=== PATIENT | male | born 1970 | race Caucasian/White ===

== ENCOUNTER → 2020-04-17 | Outpatient (CLI) | payer OTHER ==
[2020-04-18 02:12] LABS: Hepatitis A Antibody IgM Non-Reactive (Non-Reactive); Hepatitis B Core IgM Non-Reactive (Non-Reactive); Hepatitis B Surface Antigen Non-Reactive (Non-Reactive); Hepatitis C IgG Antibody Non-Reactive (Non-Reactive)
[2020-04-18 09:17] LABS: HIV 2 AB Non-Reactive (Non-Reactive); HIV AB P24 Non-Reactive (Non-Reactive); HIV P24 AG Non-Reactive (Non-Reactive)
[2020-04-19 07:41] LABS: C. trachomatis,PCR Negative (Neg,Equiv); Chlamydia trachomatis Source Urine; N. gonorrhoeae,PCR Negative (Neg,Equiv); Neisseria Source Urine
== END | disposition home or self-care (01) ==
LOC: LABWHC1 16:32
PROVIDERS: ATTEND Physician Assistant
DX: Z11.3 Encounter for screening for infections with a predominantly sexual mode of transmission (principal)
CPT/HCPCS: 36415; 80074; 86780; 87390; 87491; 87591

== ENCOUNTER → 2020-09-18 | Outpatient (CLI) | payer BC, OTHER ==
--- NOTE | 2020-09-18 12:56 | XR ---
EXAMINATION TYPE: XR lumbosacral spine min 4V DATE OF EXAM: 09/18/2020 CLINICAL HISTORY: Chest pain, fall, lower back pain TECHNIQUE: Frontal, lateral, and oblique images of the lumbar spine are obtained. COMPARISON: None FINDINGS: There are 5 lumbar-type vertebral bodies. Vertebral body height is maintained. Sacroiliac j oints are intact. The facets are in alignment and oblique views. There is maintenance of the normal l umbar lordosis. There is mild retrolisthesis of L4 and L5. Intervertebral disc space narrowing and va cuum disc phenomenon at L5-S1. Anterior osteophytes are seen at L5-S1. There is a nonspecific sclerot ic lesion within the left iliac measuring 1.2 cm. A bone scan or comparison to prior studies includin g the pelvis could be obtained. No prior studies are available. IMPRESSION: 1. No acute compression fracture of the lumbar spine. 2. Degenerative changes of the lower lumbar spine including mild retrolisthesis of L4 on L5 and inter vertebral disc space narrowing and vacuum disc phenomenon at L5-S1. Anterior osteophytes are seen at L5-S1. 3. Nonspecific sclerotic lesion within the left iliac bone measuring 1.2 cm. A comparison to prior st udies would BE helpful. If not available, bone scan could be obtained.
--- NOTE | 2020-09-18 13:37 | XR ---
EXAMINATION TYPE: XR ribs LT w pa chest x-ray DATE OF EXAM: 09/18/2020 COMPARISON: NONE HISTORY: 50-year-old with pain in the left ribs after fall FINDINGS: Heart size is within normal limits. No focal consolidation, pneumothorax or pleural effusio n. No definite evidence of left rib fracture. IMPRESSION: 1. No pneumothorax. No definite evidence of left rib fracture. No acute pulmonary disease.
== END | disposition home or self-care (01) ==
LOC: RADXRYALE 11:45
PROVIDERS: ATTEND Physician Assistant
DX: M99.73 Connective tissue and disc stenosis of intervertebral foramina of lumbar region (principal); M43.16 Spondylolisthesis, lumbar region; M47.816 Spondylosis without myelopathy or radiculopathy, lumbar region; M25.78 Osteophyte, vertebrae; M89.9 Disorder of bone, unspecified; R07.9 Chest pain, unspecified; W10.8XXA Fall (on) (from) other stairs and steps, initial encounter
CPT/HCPCS: 72110

== ENCOUNTER → 2021-03-24 | Outpatient (CLI) | payer OTHER ==
--- NOTE | 2021-03-24 12:30 | MR ---
EXAMINATION TYPE: MR brain wo/w con DATE OF EXAM: 03/24/2021 COMPARISON: None HISTORY: Migraine, visual and auditory hallucinations TECHNIQUE: Multiplanar, multisequence images of the brain and brainstem is performed without and with IV contras t, utilizing 10 mL intravenous Gadavist . FINDINGS: Diffusion weighted images demonstrate no evidence of a recent infarct or other diffusion ab normality. There is no extra-axial fluid collection. Nonspecific hyperintensity and inversion recove ry and T2-weighted sequences noted in the subcortical white matter of the anterior left temporal lobe measures approximately 15 mm in anterior to posterior dimension by 6 mm in transverse dimension The ventricular system and cisternal spaces are normal in size and appearance. The brain volume is age a ppropriate. Midline structures demonstrate normal morphology. The craniocervical junction appears within normal limits. Post contrast images demonstrate no abnormal enhancement. The dural venous sinuses appear pa tent. The visualized sinuses are clear and the globes are intact. IMPRESSION: Nonspecific focus of white matter demyelination anterior temporal lobe on the left
== END | disposition home or self-care (01) ==
LOC: RADMRIMAIN 09:31
PROVIDERS: ATTEND Family Medicine
DX: G43.009 Migraine without aura, not intractable, without status migrainosus (principal); R44.1 Visual hallucinations; R44.0 Auditory hallucinations; F39 Unspecified mood [affective] disorder
CPT/HCPCS: 70553; A9585

== ENCOUNTER 2021-05-13 10:01 | Day surgery (SDC) | payer OTHER ==
[2021-05-11 11:55] VITALS: BMI 31.5
[~2021-05-13 10:01] MED LIST: LACTATED RINGERS 1,000 ML IV SCH
[2021-05-13 10:32] VITALS: RESP 16; TEMP 98.8
[2021-05-13] MEDS ORDERED: fentaNYL (PF) 50 MCG/ML 2 ML AMP ONE (10:46)
[2021-05-13] MEDS ORDERED: PROPOFOL 10 MG/ML 20 ML VIAL IV ONE (10:46)
[2021-05-13] MEDS ORDERED: MIDAZOLAM 2 MG/2 ML VIAL ONE (10:46)
--- NOTE | 2021-05-13 11:01 | P.PCN ---
Date of Procedure: 05/13/21 Implants: BRIEF HISTORY: Patient is a 50-year-old pleasant white male scheduled for an elective colonoscopy as a part of screening for colorectal neoplasia. He also has family history of colon cancer in his mother at age 60 and his maternal aunt at age 65. PROCEDURE PERFORMED: Colonoscopy. PREOPERATIVE DIAGNOSIS: Screening for colon cancer and strong family history of colon cancer. IV sedation per Anesthesia. PROCEDURE: After informed consent was obtained, the patient, was brought into the endoscopy unit. IV sedation was administered by Anesthesia under continuous monitoring. Digital rectal examination was normal. Initially the Olympus CF-160 flexible video colonoscope was then inserted in the rectum, gradually advanced into the cecum without any difficulty. Careful examination was performed as the scope was gradually being withdrawn. Ileocecal valve and the appendiceal orifice were visualized and appeared normal. Prep was excellent. Mucosa of the cecum, ascending colon, transverse colon, descending colon, sigmoid colon, and rectum appeared normal. Retroflexion was performed in the rectum and no lesions were seen. The patient tolerated the procedure well. IMPRESSION: Normal-appearing colon from rectum to cecum with no evidence of colorectal neoplasia . RECOMMENDATIONS: Findings of this examination were discussed with the patient Family. He was advised to have a repeat screening colonoscopy every 5 years because of the strong family history of colon cancer.
[2021-05-13 11:30] VITALS: BP 132/70; PULSE 55
== END 2021-05-13 11:38 | disposition home or self-care (01) ==
LOC: ORWHC2ENDO 10:01
PROVIDERS: ATTEND Internal Medicine Gastroenterology
DX: Z12.11 Encounter for screening for malignant neoplasm of colon (principal); Z80.0 Family history of malignant neoplasm of digestive organs; F17.210 Nicotine dependence, cigarettes, uncomplicated; N42.9 Disorder of prostate, unspecified; F31.9 Bipolar disorder, unspecified; Z79.890 Hormone replacement therapy; Z79.899 Other long term (current) drug therapy; Z90.49 Acquired absence of other specified parts of digestive tract; Z98.890 Other specified postprocedural states; Z88.8 Allergy status to other drugs, medicaments and biological substances
CPT/HCPCS: J2250; J3010; J2704; G0105

== ENCOUNTER → 2021-05-26 | Outpatient (CLI) | payer OTHER ==
--- NOTE | 2021-05-26 18:56 | MR ---
EXAMINATION TYPE: MR iac wo/w con DATE OF EXAM: 05/26/2021 COMPARISON: EXAMINATION TYPE: MR iac wo/w con DATE OF EXAM: 05/26/2021 COMPARISON: MRI brain 03/24/2021 HISTORY: 50-year-old male H70.12 Chronic left mastoiditis, Left earache, headaches TECHNIQUE: Multiplanar, multisequence images of the brain and brainstem were acquired before and aft er administration of 10 mL IV Gadavist. Diffusion weighted imaging was performed. Additional coned- down sequences through the internal auditory canals and posterior cranial fossa before and after IV c ontrast administration. FINDINGS: Diffusion weighted images demonstrate no evidence of an acute ischemic lesion in the brain. T2/FLAIR weighted sequences redemonstrate the 1.4 x 0.6 cm oval focus of bright white matter change i n the subcortical region of the anterior left temporal lobe. Midline structures demonstrate normal morphology. The craniocervical junction is normal. Brain volume is appropriate. The ventricles are of normal caliber. There is no evidence of an acute intracranial hemorrhage, infarct, mass, mass-effect or an extra-axia l fluid collection. There is no cerebellopontine angle mass. The internal auditory canals are symmetric. Brainstem and skull base abnormalities are not seen. Post contrast images demonstrate no evidence of pathologic enhancement in the posterior cranial fossa or the internal auditory canals. Dural venous sinuses are patent. There is no abnormal enhancement of the labyrinths. Trace fluid within a few posterior most right mastoid air cells is unchanged. Mild mucosal thickening ethmoid air cells show slight improvement from recent prior. Globes are intac t. IMPRESSION: 1. No acute intracranial abnormality seen. Stable 1.4 x 0.6 cm subcortical bright white matter change anterior left temporal lobe, possibly sequela of remote injury. Follow-up can be considered. 3. There is trace fluid within a few posterior most right mastoid air cells of questionable clinical significance and unchanged. Otherwise, no specific abnormality on acoustic MRI. 4. Mild chronic ethmoid sinus disease shows some improvement from prior exam.
== END | disposition home or self-care (01) ==
LOC: RADMRIMAIN 11:54
PROVIDERS: ATTEND Psychiatry & Neurology Neurology
DX: H70.12 Chronic mastoiditis, left ear (principal)
CPT/HCPCS: 70553; A9585